=== PATIENT | male | born 1970 | race Caucasian/White ===

== ENCOUNTER 2016-11-24 22:17 | Observation (INO) | payer OTHER ==
[2016-11-24] MEDS ORDERED: ENALAPRILAT 1.25 MG/ML 1 ML VIAL IVP STA (23:05)
[2016-11-24 23:28] LABS: Basophils # (A) 0.1 k/uL (0-0.2); Basophils % (A) 1 %; CH 32.2; CHCM 33.6; Eosinophils # (A) 0.1 k/uL (0-0.7); Eosinophils % (A) 2 %; HCT 54.9 % (39.0-53.0); HDW 2.54; HGB 17.8 gm/dL (13.0-17.5); Luc # (Auto) 0.15; Luc % (Auto) 2; Lymphocytes # (A) 1.7 k/uL (1.0-4.8); Lymphocytes % (A) 27 %; MCH 31.1 pg (25.0-35.0); MCHC 32.4 g/dL (31.0-37.0); MCV 96.2 fL (80.0-100.0); Mean Platelet Volume 7.2; Monocytes # (A) 0.4 k/uL (0-1.0); Monocytes % (A) 7 %; Neutrophils # (A) 3.8 k/uL (1.3-7.7); Neutrophils % (A) 60 %; RBC 5.71 m/uL (4.30-5.90); RDW 15.9 % (11.5-15.5); WBC 6.3 k/uL (3.8-10.6); WBC (Perox) 6.02
--- NOTE | 2016-11-24 23:33 | ED ---
General Adult HPI - General Chief complaint: Extremity Problem,Nontraumatic Stated complaint: left arm numbness/swollen ankles Time Seen by Provider: 11/24/16 22:31 Source: patient Mode of arrival: ambulatory Limitations: no limitations - History of Present Illness Initial comments: 46-year-old male patient presents to emergency department today for complaints of left arm numbness and bilateral lower leg swelling. Patient states that for the last couple weeks he has been having intermittent left arm numbness and tingling. Patient states that it has occurred every day however comes and goes throughout the day. Patient states he feels no difference in strength. Denies any numbness, tingling, or weakness to the lower extremities. Patient states that he has not been taking his blood pressure medication for the last 2 weeks because [place] Patient also reports he has been having intermittent left-sided chest pain, states it is happened a couple times throughout the last 2 weeks. States it is dull and achy and lasts only for a few minutes. Patient denies any fever, chills, headache, dizziness, weakness, blurred vision, double vision, current chest pain, shortness of breath , nausea, vomiting, abdominal pain, difficulty with urination or bowel movements. Patient states he does have a chronic cough related to smoking at least one pack per day. - Related Data Home Medications Medication Instructions Recorded Confirmed Ibuprofen [Motrin] 800 mg PO BID PRN 11/24/16 11/24/16 Lisinopril-Hctz 20-12.5 mg 1 tab PO DAILY 11/24/16 11/24/16 [Zestoretic 20-12.5] Allergies Allergy/AdvReac Type Severity Reaction Status Date / Time No Known Allergies Allergy Verified 11/24/16 22:25 Review of Systems ROS Statement: Those systems with pertinent positive or pertinent negative responses have been documented in the HPI. ROS Other: All systems not noted in ROS Statement are negative. Past Medical History Past Medical History: Hypertension History of Any Multi-Drug Resistant Organisms: None Reported Past Surgical History: No Surgical Hx Reported Past Psychological History: No Psychological Hx Reported Smoking Status: Current every day smoker Past Alcohol Use History: Occasional Past Drug Use History: Marijuana General Exam Limitations: no limitations General appearance: alert, in no apparent distress Head exam: Present: atraumatic, normocephalic, normal inspection Eye exam: Present: normal appearance, PERRL, EOMI. Absent: scleral icterus, conjunctival injection, periorbital swelling ENT exam: Present: normal exam, normal oropharynx, mucous membranes moist Neck exam: Present: normal inspection, full ROM. Absent: tenderness, meningismus, lymphadenopathy Respiratory exam: Present: normal lung sounds bilaterally. Absent: respiratory distress, wheezes, rales, rhonchi, stridor Cardiovascular Exam: Present: regular rate, normal rhythm, normal heart sounds. Absent: systolic murmur, diastolic murmur, rubs, gallop, clicks GI/Abdominal exam: Present: soft, normal bowel sounds. Absent: distended, tenderness, guarding, rebound, rigid Extremities exam: Present: normal inspection, full ROM, normal capillary refill. Absent: tenderness, pedal edema, joint swelling, calf tenderness Back exam: Present: normal inspection Neurological exam: Present: alert, oriented X3, CN II-XII intact Expanded Patient oriented to: Present: person, place, time Speech: Present: fluid speech Cranial nerves: EOM's Intact: Normal, Tongue Deviation: Normal, Nystagmus: Normal, Facial Sensation: Normal Cerebellar function: Finger to Nose: Normal, Heel to Adams: Normal Motor strength exam: RUE: 5, LUE: 5, RLE: 5, LLE: 5 Eye Response: (4) open spontaneously Motor Response: (6) obeys commands Verbal Response: (5) oriented Psychiatric exam: Present: normal affect, normal mood Skin exam: Present: warm, dry, intact, normal color. Absent: rash Course Vital Signs 11/24/16 11/24/16 11/25/16 22:20 23:48 00:54 Temperature 97.9 F Pulse Rate 77 59 L Respiratory 18 17 Rate Blood Pressure 189/109 144/82 130/74 O2 Sat by Pulse 99 98 Oximetry EKG Findings - EKG Comments: EKG Findings:: EKG obtained at 2320 shows normal sinus rhythm with a right superior axis deviation. Ventricular rate 69, PA interval 156, Q zoroastrianism 96 , QT 394, QTC 422. No evidence of ST elevation or depression. Medical Decision Making - Medical Decision Making 46-year-old male patient presented to emergency department today with complaints of left arm numbness and tingling, lower extremity edema, and did report intermittent left-sided chest pain over the last couple of weeks. Lab work was performed and did show an elevated troponin and at 0.039. CT of the brain was done and showed no acute intracranial abnormalities. Patient will be admitted with acute coronary syndrome, cardiology consult placed. Patient given aspirin here and emergency department. Patient started on heparin protocol. Did not start beta jessica at this time because patient was found to be bradycardic in the emergency department. Patient initially did have elevated blood pressure however pressure improved throughout stay. My attending Dr. Frost will speak to Dr. Spangler. - Lab Data Result diagrams: 11/24/16 23:15 11/24/16 23:15 Lab Results 11/24/16 11/24/16 11/24/16 Range/Units 23:15 23:15 23:15 WBC 6.3 (3.8-10.6) k/uL RBC 5.71 (4.30-5.90) m/uL Hgb 17.8 H (13.0-17.5) gm/dL Hct 54.9 H (39.0-53.0) % MCV 96.2 (80.0-100.0) fL MCH 31.1 (25.0-35.0) pg MCHC 32.4 (31.0-37.0) g/dL RDW 15.9 H (11.5-15.5) % Plt Count 307 (150-450) k/uL Neutrophils % 60 % Lymphocytes % 27 % Monocytes % 7 % Eosinophils % 2 % Basophils % 1 % Neutrophils # 3.8 (1.3-7.7) k/uL Lymphocytes # 1.7 (1.0-4.8) k/uL Monocytes # 0.4 (0-1.0) k/uL Eosinophils # 0.1 (0-0.7) k/uL Basophils # 0.1 (0-0.2) k/uL Sodium 135 L (137-145) mmol/L Potassium 4.4 (3.5-5.1) mmol/L Chloride 102 (98-107) mmol/L Carbon Dioxide 26 (22-30) mmol/L Anion Gap 7 mmol/L BUN 12 (9-20) mg/dL Creatinine 1.00 (0.66-1.25) mg/dL Est GFR (MDRD) Af Amer >60 (>60 ml/min/1.73 sqM) Est GFR (MDRD) Non-Af >60 (>60 ml/min/1.73 sqM) Glucose 86 (74-99) mg/dL Calcium 9.6 (8.4-10.2) mg/dL Magnesium 2.0 (1.6-2.3) mg/dL Total Bilirubin 0.6 (0.2-1.3) mg/dL AST 21 (17-59) U/L ALT 34 (21-72) U/L Alkaline Phosphatase 100 (38-126) U/L Total Creatine Kinase 93 (55-170) U/L CK-MB (CK-2) 1.5 (0.0-2.4) ng/mL CK-MB (CK-2) Rel Index 1.6 Troponin I 0.039 H* (0.000-0.034) ng/mL NT-Pro-B Natriuret Pep pg/mL Total Protein 6.7 (6.3-8.2) g/dL Albumin 3.9 (3.5-5.0) g/dL TSH 2.670 (0.465-4.680) mIU/L 11/24/16 Range/Units 23:15 WBC (3.8-10.6) k/uL RBC (4.30-5.90) m/uL Hgb (13.0-17.5) gm/dL Hct (39.0-53.0) % MCV (80.0-100.0) fL MCH (25.0-35.0) pg MCHC (31.0-37.0) g/dL RDW (11.5-15.5) % Plt Count (150-450) k/uL Neutrophils % % Lymphocytes % % Monocytes % % Eosinophils % % Basophils % % Neutrophils # (1.3-7.7) k/uL Lymphocytes # (1.0-4.8) k/uL Monocytes # (0-1.0) k/uL Eosinophils # (0-0.7) k/uL Basophils # (0-0.2) k/uL Sodium (137-145) mmol/L Potassium (3.5-5.1) mmol/L Chloride (98-107) mmol/L Carbon Dioxide (22-30) mmol/L Anion Gap mmol/L BUN (9-20) mg/dL Creatinine (0.66-1.25) mg/dL Est GFR (MDRD) Af Amer (>60 ml/min/1.73 sqM) Est GFR (MDRD) Non-Af (>60 ml/min/1.73 sqM) Glucose (74-99) mg/dL Calcium (8.4-10.2) mg/dL Magnesium (1.6-2.3) mg/dL Total Bilirubin (0.2-1.3) mg/dL AST (17-59) U/L ALT (21-72) U/L Alkaline Phosphatase (38-126) U/L Total Creatine Kinase (55-170) U/L CK-MB (CK-2) (0.0-2.4) ng/mL CK-MB (CK-2) Rel Index Troponin I (0.000-0.034) ng/mL NT-Pro-B Natriuret Pep 89 pg/mL Total Protein (6.3-8.2) g/dL Albumin (3.5-5.0) g/dL TSH (0.465-4.680) mIU/L - Radiology Data Radiology results: report reviewed, image reviewed CT of the brain without contrast shows no acute intracranial hemorrhage, mass effect, midline shift or herniation. Ventricle show no evidence of hydrocephalus. Bones and joints show no acute fracture. There is mild thickening of the left parietal bone outer table, suggesting a small exostosis. Soft tissue show is 2.5 cm rounded subcutaneous fat density at the mid frontal scalp, most likely a lipoma. Sinuses show trace paranasal sinus mucosal thickening. No air-fluid levels. Mastoid air cells are unremarkable is visualized. No mastoid effusion. Impression by Dr. Tabares shows no acute intracranial abnormality detected. Chronic and incidental findings as above. Two-view x-ray of the chest shows no airspace consolidation. No significant pleural effusion. No pneumothorax. Normal cardiac silhouette. Mediastinum is unremarkable. Bones and joints show age indeterminate compression fracture of a lower thoracic vertebra, possibly T12 with approximately 15% height loss. Impression by Dr. Tabares shows age indeterminate compression fracture of a lower thoracic vertebra, possibly T12, with approximately 50% height loss. Otherwise no acute findings. Disposition Clinical Impression: Acute coronary syndrome, Lower leg edema, Left arm numbness Disposition: ADMITTED IP TO THIS HOSP Condition: Fair Referrals: Sukumar Cox MD [Primary Care Provider] - 1-2 days Decision to Admit Reason: Admit from [facility] Decision Date: 11/25/16 Decision Time: 01:06
--- NOTE | 2016-11-24 23:36 | XR ---
EXAM: XR Chest, 2 Views CLINICAL HISTORY: Pain. Hypertension. Left arm numbness. TECHNIQUE: Frontal and lateral views of the chest. Total images: 3. COMPARISON: No relevant prior studies available. FINDINGS: Lungs: No airspace consolidation. Pleural space: No significant pleural effusion. No pneumothorax. Heart: Normal cardiac silhouette. Mediastinum: Unremarkable. Bones/joints: Age-indeterminate compression fracture of a lower thoracic vertebra, possibly T12, with approximately 15% height loss. IMPRESSION: 1. Age-indeterminate compression fracture of a lower thoracic vertebra, possibly T12, with approximately 15% height loss. 2. Otherwise, no acute findings.
[2016-11-24 23:39] LABS: ALT 34 U/L (21-72); AST 21 U/L (17-59); Alkaline Phosphatase 100 U/L (38-126); Anion Gap 7 mmol/L; Blood Urea Nitrogen 12 mg/dL (9-20); Calcium 9.6 mg/dL (8.4-10.2); Carbon Dioxide 26 mmol/L (22-30); Chloride 102 mmol/L (98-107); Glucose 86 mg/dL (74-99); Non-African American GFR(MDRD) >60 (>60 ml/min/1.73 sqM); Potassium 4.4 mmol/L (3.5-5.1); Sodium 135 mmol/L (137-145); Total Bilirubin 0.6 mg/dL (0.2-1.3); Total Protein 6.7 g/dL (6.3-8.2)
--- NOTE | 2016-11-24 23:41 | CT ---
EXAM: CT Head Without Intravenous Contrast CLINICAL HISTORY: Left arm numbness. Ankle swelling. TECHNIQUE: Axial computed tomography images of the head/brain without intravenous contrast. CTDI is 57.40 mGy and DLP is 1150.50 mGy-cm. This CT exam was performed using one or more of the following dose reduction techniques: automated exposure control, adjustment of the mA and/or kV according to patient size, and/or use of iterative reconstruction technique. Coronal and sagittal reformatted images were created and reviewed. COMPARISON: No relevant prior studies available. FINDINGS: Brain: No acute intracranial hemorrhage, mass effect, midline shift or herniation. Ventricles: No evidence of hydrocephalus. Bones/joints: No acute fracture. There is mild thickening of the left parietal bone outer table, suggesting a small exostosis. Soft tissues: There is a 2.5 cm rounded subcutaneous fat density at the mid frontal scalp, most likely a lipoma. Sinuses: Trace paranasal sinus mucosal thickening. No air-fluid levels. Mastoid air cells: Unremarkable as visualized. No mastoid effusion. IMPRESSION: 1. No acute intracranial abnormality detected. 2. Chronic and incidental findings as above.
[2016-11-25 00:17] LABS: Creatine Kinase MB 1.5 ng/mL (0.0-2.4)
[2016-11-25 00:20] LABS: Troponin I 0.039 ng/mL (0.000-0.034)
[2016-11-25] MEDS ORDERED: HEPARIN SODIUM,PORCINE 5,000 UNIT/ML 1 ML VIAL IV PRN (01:00)
[2016-11-25] MEDS ORDERED: NITROGLYCERIN SL TABS 0.4 MG TAB SUBLINGUAL PRN (01:00)
[2016-11-25] MEDS ORDERED: ASPIRIN 81 MG PO STA (01:00)
[2016-11-25] MEDS ORDERED: MORPHINE SULFATE 2 MG/ML SYRINGE IVP PRN (01:00)
[2016-11-25] MEDS ORDERED: HEPARIN SODIUM,PORCINE 5,000 UNIT/ML 1 ML VIAL IV ONE (01:00)
[2016-11-25] MEDS: SODIUM CHLORIDE 0.9% 1,000 ML IV SCH (01:52)
[2016-11-25] MEDS: HEPARIN SODIUM,PORCINE/D5W PMX 25,000 UNIT in DEXTROSE/WATER 1 500ML.BAG IV SCH (01:53)
[2016-11-25 02:04] LABS: Partial Thromboplastin Time 26.7 sec (22.0-30.0); Prothrombin Time 10.2 sec (9.0-12.0)
[2016-11-25 02:31] VITALS: BMI 29.7
[2016-11-25 05:38] LABS: Mean Platelet Volume 7.6
[2016-11-25 06:11] LABS: Creatine Kinase MB 1.3 ng/mL (0.0-2.4)
[2016-11-25 06:33] LABS: Troponin I 0.036 ng/mL (0.000-0.034)
--- NOTE | 2016-11-25 08:02 | P.CRDCN ---
History of Present Illness Consult date: 11/25/16 Requesting physician: Galileo Spangler Consult reason: chest pain Chief complaint: Left arm numbness History of present illness: This is a 46-year-old gentleman with history of hypertension, nicotine dependence, he states he drinks 3 or 4 times a week and at that time drinks approximately 7 alcoholic beverages. He denies any family history of premature coronary artery disease. Patient presents to the hospital with symptoms of left arm numbness which she states that he's been experiencing for the past 3 weeks or so off and on. He did go to see his primary care physician a couple of weeks ago and was told that he may have a pinched nerve. He states that the symptoms somewhat subsided and then again returned. Yesterday he also noticed some swelling in his bilateral ankles. Patient does state that approximately 2 weeks ago he did have an episode of aching in his chest, according to him he only had 1 episode of this. He does have known hypertension , has not taken his blood pressure medications for the past 2 weeks. He denies any dizziness or lightheadedness, no difficulty speaking, no blurred vision. He denies any overt shortness of breath. CAT scan of the brain was performed which did not reveal any acute abnormality. Chest x-ray revealed age indeterminate compression fracture of the lower thoracic vertebrae otherwise no acute findings. EKG on arrival here showed a normal sinus rhythm with nonspecific ST-T wave changes. Blood pressure on arrival here 189/109, heart rate in the 70s, 99% on room air. White blood cell count normal, hemoglobin 17.8, platelet count 278. Sodium 135, potassium 4.4, BUN 12, creatinine 1.0. TSH normal. BNP 89, troponin 0.039, 0.036. Time of my examination this morning , patient denies any left arm numbness, denies chest pain. Past Medical History Past Medical History: Hypertension History of Any Multi-Drug Resistant Organisms: None Reported Past Surgical History: No Surgical Hx Reported Past Anesthesia/Blood Transfusion Reactions: No Reported Reaction Past Psychological History: No Psychological Hx Reported Smoking Status: Former smoker Past Alcohol Use History: Occasional Past Drug Use History: Marijuana - Past Family History Father Family Medical History: No Reported History Mother Family Medical History: No Reported History Medications and Allergies Home Medications Medication Instructions Recorded Confirmed Type Ibuprofen [Motrin] 800 mg PO BID PRN 11/24/16 11/24/16 History Lisinopril-Hctz 20-12.5 mg 1 tab PO DAILY 11/24/16 11/24/16 History [Zestoretic 20-12.5] Allergies Allergy/AdvReac Type Severity Reaction Status Date / Time No Known Allergies Allergy Verified 11/24/16 22:25 Physical Exam Vitals: Vital Signs Temp Pulse Pulse Resp BP BP Pulse Ox 11/25/16 04:00 97.5 F L 67 17 155/90 96 11/25/16 02:02 97.9 F 62 16 140/75 98 11/25/16 00:54 59 L 17 130/74 98 11/24/16 23:48 144/82 11/24/16 22:20 97.9 F 77 18 189/109 99 Intake and Output 11/24/16 11/25/16 11/25/16 22:59 06:59 14:59 Intake Total 160.333 Output Total 500 Balance -339.667 Intake: Intake, IV Titration 160.333 Amount Heparin Sodium,Porcine/ 80.333 D5w Pmx 25,000 unit In Dextrose/Water 1 500ml. bag @ 9.8 UNITS/KG/HR 20 mls/hr IV .Q24H HUEY Rx#: [id number] Sodium Chloride 0.9% 1, 80 000 ml @ 20 mls/hr IV . Q24H [facility]UEY Rx#:[id number] Output: Urine 500 Other: Voiding Method Toilet # Voids 2 Weight 102.058 kg 102.6 kg PHYSICAL EXAMINATION: HEENT: Head is atraumatic, normocephalic. Pupils equal, round. Neck is supple. There is no elevated jugular venous pressure. HEART EXAMINATION: Heart S1, S2 normal. No murmur or gallop heard. CHEST EXAMINATION: Lungs are clear to auscultation and precussion. No chest wall tenderness is noted on palpation or with deep breathing. ABDOMEN: Soft, nontender. Bowel sounds are heard. No organomegaly noted. EXTREMITIES: 2+ peripheral pulses with trace evidence of peripheral edema and no calf tenderness noted. NEUROLOGIC patient is awake, alert and oriented -3. . Results 11/25/16 05:16 11/24/16 23:15 Cardiac Enzymes 11/24/16 11/24/16 11/25/16 Range/Units 23:15 23:15 05:16 AST 21 (17-59) U/L CK-MB (CK-2) 1.5 1.3 (0.0-2.4) ng/mL Troponin I 0.039 H* 0.036 H* (0.000-0.034) ng/mL Coagulation 11/24/16 11/25/16 Range/Units 23:15 05:16 PT 10.2 (9.0-12.0) sec APTT 26.7 28.5 (22.0-30.0) sec CBC 11/24/16 11/25/16 Range/Units 23:15 05:16 WBC 6.3 (3.8-10.6) k/uL RBC 5.71 (4.30-5.90) m/uL Hgb 17.8 H (13.0-17.5) gm/dL Hct 54.9 H (39.0-53.0) % Plt Count 307 278 (150-450) k/uL Comprehensive Metabolic Panel 11/24/16 Range/Units 23:15 Sodium 135 L (137-145) mmol/L Potassium 4.4 (3.5-5.1) mmol/L Chloride 102 (98-107) mmol/L Carbon Dioxide 26 (22-30) mmol/L BUN 12 (9-20) mg/dL Creatinine 1.00 (0.66-1.25) mg/dL Glucose 86 (74-99) mg/dL Calcium 9.6 (8.4-10.2) mg/dL AST 21 (17-59) U/L ALT 34 (21-72) U/L Alkaline Phosphatase 100 (38-126) U/L Total Protein 6.7 (6.3-8.2) g/dL Albumin 3.9 (3.5-5.0) g/dL Current Medications Generic Name Dose Route Start Last Admin Trade Name Freq PRN Reason Stop Dose Admin Aspirin 325 mg 11/26/16 09:00 Aspirin PO DAILY [facility] Atorvastatin Calcium 20 mg 11/25/16 09:00 Lipitor PO DAILY [facility] Heparin Sodium (Porcine) 0 unit 11/25/16 01:00 Heparin IV Q6HR PRN Low PTT Protocol Heparin Sodium/Dextrose 25,000 500 mls @ 20 mls/hr 11/25/16 01:00 11/25/16 05 :54 unit/ IV Solution IV 12.8 units/kg/hr .Q24H [facility]UEY 26.12 mls/hr Protocol Titration 9.8 UNITS/KG/HR Sodium Chloride 1,000 mls @ 20 mls/hr 11/25/16 01:00 11/25/16 01:52 Saline 0.9% IV 20 mls/hr .Q24H [facility]UE[facility] Administration Morphine Sulfate 2 mg 11/25/16 01:00 Morphine Sulfate (Inj) IVP Q5M PRN Chest Pain Nitroglycerin 0.4 mg 11/25/16 01:00 Nitrostat SUBLINGUAL Q5M PRN Chest Pain Intake and Output 11/24/16 11/25/16 11/25/16 22:59 06:59 14:59 Intake Total 160.333 Output Total 500 Balance -339.667 Intake: Intake, IV Titration 160.333 Amount Heparin Sodium,Porcine/ 80.333 D5w Pmx 25,000 unit In Dextrose/Water 1 500ml. bag @ 9.8 UNITS/KG/HR 20 mls/hr IV .Q24H [facility] Rx#: [id number] Sodium Chloride 0.9% 1, 80 000 ml @ 20 mls/hr IV . Q24H [facility] Rx#:[id number] Output: Urine 500 Other: Voiding Method Toilet # Voids 2 Weight 102.058 kg 102.6 kg 11/25/16 05:16 11/24/16 23:15 EKG Interpretations (text) EKG shows normal sinus rhythm with nonspecific ST-T wave changes Assessment and Plan Plan: Assessment and plan #1 symptoms of left arm numbness, intermittent for approximately a three-week duration, one episode of chest discomfort. Troponins 0.039, 0.036. EKG shows normal sinus rhythm with nonspecific ST-T wave changes. CAT scan of the brain does not reveal any acute findings. #2 accelerated hypertension, patient has history of hypertension, has not taken his blood pressure medication for approximately 2 weeks. #3 nicotine dependence, patient's smokes at least one pack of cigarettes per day. #4 EtOH use Plan We will request an echocardiogram with Doppler study be performed. We will also resume the patient's home pressure medications. Discontinue the when necessary antihypertensives. Obtain fasting lipid profile. Obtain d-dimer. Further recommendations will be based on these findings and patient's clinical course. DNP note has been reviewed, I agree with a documented findings and plan of care. Patient was seen and examined.
[2016-11-25] MEDS ORDERED: METOPROLOL TARTRATE 25 MG TAB PO SCH (09:00)
[2016-11-25] MEDS ORDERED: LISINOPRIL-HCTZ 20-12.5 MG 1 EACH TAB PO SCH (09:00)
[2016-11-25] MEDS: ATORVASTATIN 20 MG TAB PO SCH (09:07)
[2016-11-25] MEDS ORDERED: DOBUTamine DRIP for NUC MED 500 MG in DEXTROSE/WATER 1 250ML.BAG IV ONE (10:53)
--- NOTE | 2016-11-25 12:23 | P.STRESS ---
- Stress Test Note Stress Test Results/Findings: Exam Performed: dobutamine stress echo Exam Date: 11/25/16 Reason for Exam: CP Height: 6 ft 1 in Weight: 102.6 kg Protocol: DSE Stage: 40MCG Duration of Exercise: 13 MIN Resting Heart Rate: 54 Resting Blood Pressure: 142/99 Maximum Achieved Heart Rate: 149 Maximum Achieved Blood Pressure: 206/110 85% PMHR: 149 100% PMHR: 175 METS: Technologist Comment: Stress Test Results/Findings: This is a 46-year-old gentleman who is being evaluated for symptoms of chest pain. Patient has history of hypertension and also smoking history. An EKG showed sinus rhythm with normal [place] interval, QRS duration. A standard dose of dobutamine was was initiated at 10 mics and was titrated to maximum of 40 mics. Patient is HIV maximum rate of 149 with blood pressure 200/74. EKGs taken during or after the dobutamine infusion did not reveal any changes to sized ischemia. Patient did not explains any chest pain. Echo data: Baseline echo images showed normal wall motion and thickening. Exercise echo images with the dobutamine showed augmentation of wall motion and thickening in all segments. Patient did not sense any chest pain. Final impression: #1. Negative dobutamine stress test. #2. Negative Debridement stress echo
[2016-11-25 13:10] LABS: Creatine Kinase MB 1.1 ng/mL (0.0-2.4)
[2016-11-25 13:17] LABS: Troponin I 0.041 ng/mL (0.000-0.034)
[2016-11-25] MEDS: LISINOPRIL-HCTZ 20-12.5 MG 1 EACH TAB PO SCH (15:17)
[2016-11-25] MEDS ORDERED: RX INFO: IV CONTRAST WAS GIVEN 1 EACH MISC MISCELLANE PRN (17:48)
--- NOTE | 2016-11-25 18:39 | XR ---
EXAMINATION TYPE: XR cervical spine comp DATE OF EXAM: 11/25/2016 CLINICAL HISTORY: pain COMPARISON: NONE TECHNIQUE: Frontal, lateral, oblique, swimmers, and open mouth view of the cervical spine are obtaine d. FINDINGS: There is reversal of the normal cervical lordosis which can be seen in patients with muscle spasticity. There is no evidence of fracture or subluxation. Moderate degenerative narrowing and spo ndylosis identified at C5-6 and C6-7. Mild bilateral foraminal encroachment at C6-7 left greater than right. IMPRESSION: Degenerative changes as discussed. Reversal of the normal cervical lordosis.
--- NOTE | 2016-11-25 19:34 | CT ---
EXAMINATION TYPE: CT cervical spine wo/w con DATE OF EXAM: 11/25/2016 COMPARISON: NONE HISTORY: Patient fell off roof couple years ago, left arm numbness and left neck and shoulder pain. CT DLP: 1246.[address] of the cervical spine was performed with bone and soft tissue window settings submitted . Coronal and sagittal reconstruction is obtained. There is reversal of the normal cervical lordosis which can be seen in patients with muscle spasticit y. C2-3, C3-4 and C4-5: Within normal limits C5-6: Moderate degenerative disc space narrowing. Moderate size ventral and dorsal spondylosis. Effac ement of the ventral thecal sac with mild central stenosis identified. Bilateral foraminal encroachme nt is seen. C6-7: Mild degenerative disc space narrowing. Posterior disc bulge identified. No evidence for kimberly herniation or central stenosis. C7-T1: Within normal limits. No evidence for fracture or subluxation. IMPRESSION: 1. Degenerative disc disease greatest at C5-6 with associated spondylosis and mild central stenosis. Bilateral foraminal encroachment at this level.
[2016-11-25 20:54] VITALS: TEMP 98.4
--- NOTE | 2016-11-25 21:09 | P.HPIM ---
History of Present Illness H&P Date: 11/25/16 Chief Complaint: Left arm numbness History of presenting complaint This is a 46-year-old patient of Dr. Cox. Patient for 8 weeks has been having some numbness and tingling in the left arm. He went to see Dr. Cox few weeks ago and then got better. It did come back again for about 7-10 days. Patient previously had a fall with injury to his neck about 6 years ago and had some probably injury to his vertebra. Because of his presentation is concerned about cardiac events he was admitted. Patient denies any dizziness no headaches no precordial pain. The patient does have chronic intermittent neck pain. GEN.: None EYES: None HEENT: None NECK: As above RESPIRATORY: None CARDIOVASCULAR: None GASTROINTESTINAL: None GENITOURINARY: None MUSCULOSKELETAL: As above] LYMPHATICS: None HEMATOLOGICAL: None PSYCHIATRY: None NEUROLOGICAL: Left arm numbness Past medical history: Hypertension, hyperlipidemia, injury to the neck secondary to fall Past surgical history None Social history: Smokes a pack a day for last 30 years. . 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 EYES: Pupils equal. Conjunctiva normal. HEENT: External appearance of nose and ears normal, oral cavity grossly normal. NECK: JVD not raised; masses not palpable. HEART: First and second heart sounds are normal; no edema. LUNGS: Respiratory rate normal; clear to auscultation. ABDOMEN: Soft, nontender, liver spleen not palpable, no masses palpable. LYMPHATICS: No lymph nodes palpable in the axilla and neck. PSYCH: Alert and oriented x3; mood and affect normal. NEUROLOGICAL: Cranial nerves grossly intact; no facial asymmetry, power and sensation grossly intact. Investigations: White count 6.3 hemoglobin 17.8 potassium 4.4 Troponin 0.039, 0.036, 0.041, TSH 2.6 Chest x-ray T12 compression fracture appears chronic Assessment: -This is a patient presents with left arm numbness with a prior history of cervical spine injury second to follow injury many years ago. This could be related to/radicular manifestation. -Essential hypertension -Hyperlipidemia -Chronic nicotine Dependence patient is smoker Plan: Cardiology was consulted. They ordered a stress test. Cervical spine x-ray and computed tomography scan of the cervical spine was ordered. Care was discussed with the patient and . Patient needed outpatient orthopedic follow-up. Patient advised against smoking and begin a nicotine patch. Past Medical History Past Medical History: Hypertension History of Any Multi-Drug Resistant Organisms: None Reported Past Surgical History: No Surgical Hx Reported Past Anesthesia/Blood Transfusion Reactions: No Reported Reaction Past Psychological History: No Psychological Hx Reported Smoking Status: Former smoker Past Alcohol Use History: Occasional Past Drug Use History: Marijuana - Past Family History Father Family Medical History: No Reported History Mother Family Medical History: No Reported History Medications and Allergies Allergies Allergy/AdvReac Type Severity Reaction Status Date / Time No Known Allergies Allergy Verified 11/24/16 22:25 Results CBC & Chem 7: 11/25/16 05:16 11/24/16 23:15 Thrombosis Risk Factor Assmnt - Choose All That Apply Other Risk Factors: No
[2016-11-26 00:45] VITALS: RESP 18
[2016-11-26] MEDS: HEPARIN SODIUM,PORCINE/D5W PMX 25,000 UNIT in DEXTROSE/WATER 1 500ML.BAG IV SCH (01:44)
[2016-11-26] MEDS: SODIUM CHLORIDE 0.9% 1,000 ML IV SCH (01:46)
[2016-11-26 07:06] LABS: Mean Platelet Volume 7.5
[2016-11-26 07:24] LABS: Cholesterol 180 mg/dL (<200); HDL Cholesterol 43 mg/dL (40-60)
[2016-11-26] MEDS: LISINOPRIL-HCTZ 20-12.5 MG 1 EACH TAB PO SCH (07:55)
[2016-11-26] MEDS: ATORVASTATIN 20 MG TAB PO SCH (07:55)
[2016-11-26 08:01] VITALS: BP 148/91; PULSE 60
[2016-11-26] MEDS ORDERED: ASPIRIN 325 MG TAB PO SCH (09:00)
--- NOTE | 2016-11-26 20:35 | P.DS ---
Providers Date of admission: 11/25/16 01:08 Expected date of discharge: 11/26/16 Attending physician: Galileo Spangler Consults: 11/25/16 01:00 Consult Physician Urgent Consulting Provider: [facility] Consult Reason/Comments: Chest Pain, Elevated Trop, Lower extremity edema Do you want consulting provider notified?: Yes Primary care physician: Sukumar Kenny [facility] Course: FINAL DIAGNOSES: -Left arm numbness with history of cervical spine injury likely related to radicular manifestation -Essential hypertension. -Hyperlipidemia. -Chronic nicotine dependence patient is a smoker HOSPTIAL COURSE: This a 46-year-old male who presented with left arm numbness with concerns for cardiac etiology. Patient admitted, cardiology consulted stress test ordered. EKG stress test and cardiac enzymes all negative. Cervical spine x-ray and CT of the cervical spine revealed degenerative disc disease with associated spondylosis and central stenosis. Left arm is not paining the patient nor is the cervical spinal area. Patient can follow-up with Dr. Iglesias of ortho/spine on an outpatient basis for further treatment. No further chest pain episodes, patient tolerating his diet, ambulatory in the room and queen ways, has moved his bowels. Overall condition is stable patient would like to go home. Patient is ready for discharge. 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 Spangler DISPOSITION: Home to the care of his family Patient Condition at Discharge: Stable Plan - Discharge Summary New Discharge Prescriptions: New Atorvastatin [Lipitor] 20 mg PO DAILY #30 tab Lisinopril-Hctz 20-12.5 mg [Zestoretic 20-12.5] 2 each PO DAILY #30 tab Naproxen [Naprosyn] 500 mg PO Q12HR #20 tab predniSONE 10 mg PO DAILY #30 tab Discontinued Lisinopril-Hctz 20-12.5 mg [Zestoretic 20-12.5] 1 tab PO DAILY Ibuprofen [Motrin] 800 mg PO BID PRN PRN Reason: Pain Discharge Medication List Atorvastatin [Lipitor] 20 mg PO DAILY #30 tab 11/25/16 [Rx] Lisinopril-Hctz 20-12.5 mg [Zestoretic 20-12.5] 2 each PO DAILY #30 tab [Rx] Naproxen [Naprosyn] 500 mg PO Q12HR #20 tab 11/26/16 [Rx] predniSONE 10 mg PO DAILY #30 tab 11/26/16 [Rx] Follow up Appointment(s)/Referral(s): Parmjit Orantes MD [STAFF PHYSICIAN] - 1 Week (message left. office will call with appointment time) Barbara Hauser NPC [Nurse Practitioner] - 1 Week (office will call with appointment time) Jayla Iglesias DO [Doctor of Osteopathic Medicine] - 1 Week (please call to make appointment) Sukumar Cox MD [Primary Care Provider] - 3 Days (Office is closed. Please call to make appointment) Patient Instructions/Handouts: Acute Coronary Syndrome (DC) Discharge Disposition: HOME SELF-CARE
--- NOTE | 2016-11-29 10:12 | ECHOS ---
Stress Test Results/Findings: Exam Performed: dobutamine stress echo Exam Date: 11/25/16 Reason for Exam: CP Height: 6 ft 1 in Weight: 102.6 kg Protocol: DSE Stage: 40MCG Duration of Exercise: 13 MIN Resting Heart Rate: 54 Resting Blood Pressure: 142/99 Maximum Achieved Heart Rate: 149 Maximum Achieved Blood Pressure: 206/110 85% PMHR: 149 100% PMHR: 175 METS: Technologist Comment: Stress Test Results/Findings: This is a 46-year-old gentleman who is being evaluated for symptoms of chest pain. Patient has history of hypertension and also smoking history. An EKG showed sinus rhythm with normal WI interval, QRS duration. A standard dose of dobutamine was was initiated at 10 mics and was titrated to maximum of 40 mics. Patient is HIV maximum rate of 149 with blood pressure 200/74. EKGs taken during or after the dobutamine infusion did not reveal any changes to sized ischemia. Patient did not explains any chest pain. Echo data: Baseline echo images showed normal wall motion and thickening. Exercise echo images with the dobutamine showed augmentation of wall motion and thickening in all segments. Patient did not sense any chest pain. Final impression: #1. Negative dobutamine stress test. #2. Negative Debridement stress echo MTDD
--- NOTE | 2016-11-29 15:49 | ECHOF ---
Referral Reason:chest pain MEASUREMENTS -------- HEIGHT: 182.9 cm WEIGHT: 102.5 kg BP: 130/60 RVIDd: 3.2 cm (< 3.3) IVSd: 1.0 cm (0.6 - 1.1) LVIDd: 4.5 cm (3.9 - 5.3) LVPWd: 1.3 cm (0.6 - 1.1) EDV(Teich): 94 ml IVSs: 1.5 cm LVIDs: 3.2 cm LVPWs: 1.7 cm %IVS Thck: 45 % ESV(Teich): 41 ml EF(Teich): 56 % %FS: 29 % SV(Teich): 53 ml LALs A4C: 5.2 cm LAAs A4C: 17.5 cm LAESV A-L A4C: 50 ml LAESV MOD A4C: 47 ml LALs A2C: 5.1 cm LAAs A2C: 18.7 cm LAESV A-L A2C: 59 ml LAESV MOD A2C: 55 ml LAESV(A-L): 55 ml LAESV Index (A-L): 24.43 ml/m Ao Diam: 3.3 cm (2.0 - 3.7) AV Cusp: 2.2 cm (1.5 - 2.6) LA Diam: 3.6 cm (2.7 - 3.8) MV EXCURSION: 20.477 mm (> 18.000) MV EF SLOPE: 94 mm/s (70 - 150) EPSS: 0.6 cm MV E Christiano: 0.74 m/s MV DecT: 174 ms MV Dec Clinton: 4.3 m/s MV A Christiano: 0.66 m/s MV E/A Ratio: 1.12 MV PHT: 51 ms E/E': 12.15 E': 0.06 m/s AV Vmax: 1.03 m/s AV maxP.20 mmHg TR Vmax: 1.23 m/s TR maxP.07 mmHg RAP: 5.00 mmHg RVSP: 11.07 mmHg FINDINGS -------- Sinus rhythm. This was a technically adequate study. LV size, wall thickness and systolic function are normal, with an EF greater than 55%. The right ventricle is normal in size. Normal LA size by volume 22+/-6 ml/m2. The right atrial size is normal. There is mild aortic valve sclerosis. There is no evidence of aortic regurgitation. Mild mitral annular calcification present. Mild mitral regurgitation is present. Mild tricuspid regurgitation present. There is no evidence of pulmonary hypertension. The right ventricular systolic pressure, as measured by Doppler, is 11.07mmHg. Trace/mild (physiologic) pulmonic regurgitation. The aortic root size is normal. There is no pericardial effusion. CONCLUSIONS -------- 1. LV size, wall thickness and systolic function are normal, with an EF greater than 55%. 2. There is mild aortic valve sclerosis. 3. Mild mitral annular calcification present. 4. Mild mitral regurgitation is present. 5. Mild tricuspid regurgitation present. 6. There is no evidence of pulmonary hypertension. 7. The right ventricular systolic pressure, as measured by Doppler, is 11.07mmHg. 8. Trace/mild (physiologic) pulmonic regurgitation. FRENCH TEACHER: Jennifer Aguiar RDCS
== END 2016-11-26 11:45 | disposition home or self-care (01) ==
LOC: EC 22:17 → 6SEL 11-25 01:08 → INTOOBSV 11-25 01:08
PROVIDERS: ADMIT Hospitalist; ATTEND Hospitalist
DX: R20.0 Anesthesia of skin (principal); M50.122 Cervical disc disorder at C5-C6 level with radiculopathy; R07.89 Other chest pain; I10 Essential (primary) hypertension; M47.22 Other spondylosis with radiculopathy, cervical region; R00.1 Bradycardia, unspecified; T46.4X6A Underdosing of angiotensin-converting-enzyme inhibitors, initial encounter; Z91.128 Patient's intentional underdosing of medication regimen for other reason; M48.02 Spinal stenosis, cervical region; R60.0 Localized edema; E78.5 Hyperlipidemia, unspecified; F17.210 Nicotine dependence, cigarettes, uncomplicated; Z79.899 Other long term (current) drug therapy; Z87.828 Personal history of other (healed) physical injury and trauma; Z91.81 History of falling; Z72.89 Other problems related to lifestyle
CPT/HCPCS: 96376 ×2; 99285 ×2; 96365; 96366; 36415; 93005; 93017; 93306; 93350; 85379; 83880; 80061; 80053; 84443; 82550 ×2; 82553 ×2; 83735; 84484 ×2; 85025; 85049 ×2; 85610; 85730; 71020; 72050; 72127; 70450; G0378 ×2; J1250; J1644 ×2; Q9967; 96374

== ENCOUNTER → 2019-11-28 | Outpatient (CLI) | payer OTHER ==
--- NOTE | 2019-11-28 10:34 | CT ---
EXAMINATION TYPE: CT angio abdomen pelvis DATE OF EXAM: 11/28/2019 COMPARISON: None HISTORY: Aneurysm of iliac artery CT DLP: 1332.8 mGycm CONTRAST: CTA thoracic and abdominal aorta with 3-D reconstruction is performed without Oral Contrast and witho ut and with IV Contrast, patient injected with 100 mL of Isovue 370. Contrast CTA of the abdominal aorta was performed from the lung bases through the base of the pelvis. 3-D reconstruction imaging obtained at a separate workstation. CONTRAST CT ABDOMEN AND PELVIS ABDOMINAL AORTA: There is ectasia of the abdominal aorta without evidence for aneurysm. Mild mural th rombus seen. Branch vessels including the celiac, SMA, BLAYNE and renal vessels are patent. There is a r ight common iliac artery aneurysm measuring 2.5 cm in greatest transverse dimension. The left common iliac arteries of normal caliber. The internal and external/internal iliac arteries are patent and no naneurysmal. LIVER/GB- No significant abnormality is seen. PANCREAS- No significant abnormality is seen. SPLEEN- No significant abnormality is seen. ADRENALS- No significant abnormality is seen. KIDNEYS/BLADDER- No significant abnormality is seen. BOWEL- No Significant abnormality GENITAL ORGANS: No gross abnormality seen. LYMPH NODES- No greater than 1cm abdominal or pelvic lymph nodes areappreciated. OSSEOUS STRUCTURES- No significant abnormality is seen. OTHER- No significant abnormality is seen. IMPRESSION- 1. Right common iliac artery aneurysm as noted.
== END | disposition home or self-care (01) ==
LOC: RADCTMAIN 09:29
PROVIDERS: ATTEND Thoracic Surgery (Cardiothoracic Vascular Surgery)
DX: I72.3 Aneurysm of iliac artery (principal)
CPT/HCPCS: 74174; Q9967

== ENCOUNTER → 2020-02-21 | Outpatient (CLI) | payer OTHER ==
[2020-02-21 13:22] LABS: Basophils # (A) 0.1 k/uL (0-0.2); Basophils % (A) 1 %; Eosinophils # (A) 0.1 k/uL (0-0.7); Eosinophils % (A) 1 %; HGB 18.3 gm/dL (13.0-17.5); Lymphocytes # (A) 1.5 k/uL (1.0-4.8); Lymphocytes % (A) 20 %; MCH 31.9 pg (25.0-35.0); MCHC 32.9 g/dL (31.0-37.0); MCV 96.7 fL (80.0-100.0); Mean Platelet Volume 7.7; Monocytes # (A) 0.5 k/uL (0-1.0); Monocytes % (A) 7 %; Neutrophils # (A) 5.2 k/uL (1.3-7.7); Neutrophils % (A) 69 %; Platelet Count 309 k/uL (150-450); RBC 5.74 m/uL (4.30-5.90); RDW 14.2 % (11.5-15.5); WBC 7.5 k/uL (3.8-10.6)
[2020-02-21 13:32] LABS: HCT 55.6 % (39.0-53.0)
[2020-02-21 20:11] LABS: African American GFR (CKD) 115.8 (60.0-200.0); Albumin 4.3 g/dL (3.80-4.90); Albumin/Globulin Ratio 1.72 (1.60-3.17); Anion Gap 5.9 mmol/L (4.00-12.00); Calcium 10.2 mg/dL (8.7-10.3); Carbon Dioxide 30.1 mmol/L (21.6-31.8); Globulin 2.5 g/dL (1.6-3.3); Non-African American GFR(CKD) 99.9 (60.0-200.0); Potassium 5.1 mmol/L (3.5-5.5); Total Bilirubin 0.7 mg/dL (0.2-1.2); Total Protein 6.8 g/dL (6.2-8.2)
[2020-02-23 04:18] LABS: Hemoglobin A1C 5.3 % (4.0-6.0)
== END | disposition home or self-care (01) ==
LOC: LABWHC1 11:49
PROVIDERS: ATTEND Nurse Practitioner Family
DX: Z01.818 Encounter for other preprocedural examination (principal)
CPT/HCPCS: 36415; 80053; 83036; 85025; 85610

== ENCOUNTER → 2024-04-06 | Outpatient (CLI) | payer OTHER ==
--- NOTE | 2024-04-06 16:47 | US ---
EXAMINATION TYPE: US venous doppler duplex LE LT DATE OF EXAM: 04/06/2024 4:27 PM COMPARISON: NONE CLINICAL INDICATION: Male, 54 years old with history of M79.89 Left leg swelling; I10 Hypertension; l eft leg edema., Pain TECHNIQUE: The lower extremity deep venous system is examined utilizing real time linear array sonog john with graded compression, color doppler sonography, and spectral doppler. SIDE PERFORMED: Left FINDINGS: VESSELS IMAGED: Common Femoral Vein Deep Femoral Vein Greater Saphenous Vein * Femoral Vein Popliteal Vein Small Saphenous Vein * Proximal Calf Veins (* superficial vessels) Left Leg: Negative for DVT, Color Doppler imaging shows patency of the vessels. Spectral waveforms a re within normal limits. IMPRESSION: 1. No evidence of deep vein thrombosis of the left lower extremity. [facility], , 04/06/2024 4:45 PM
--- NOTE | 2024-04-08 07:44 | XR ---
EXAMINATION TYPE: XR knee complete LT DATE OF EXAM: 04/06/2024 CLINICAL HISTORY: Left leg swelling and hypertension TECHNIQUE: Three views of the left knee are obtained including sunrise view. COMPARISON: None. FINDINGS: There is no acute fracture/dislocation evident in left knee. Mild to moderate tricompartme nt joint space loss and mild spurring. Patellar articulation satisfactory and the sunrise view. Incre ased soft tissue density suprapatellar region suggests moderate size left pleural effusion. IMPRESSION: As above. [facility], , 04/08/2024 7:42 AM
== END | disposition home or self-care (01) ==
LOC: RADUSWWP 16:10
PROVIDERS: ATTEND Family Medicine
DX: M79.89 Other specified soft tissue disorders (principal); I10 Essential (primary) hypertension; R60.0 Localized edema

== ENCOUNTER 2024-08-22 15:41 | Emergency (ER) | payer OTHER ==
[2024-08-22 15:50] VITALS: PULSE 69; RESP 16; TEMP 97.7
--- NOTE | 2024-08-22 17:00 | ED ---
General Adult HPI - General Source: patient, RN notes reviewed Mode of arrival: ambulatory Limitations: no limitations <Sonia Jimenez - Last Filed: 08/22/24 16:59> - General Source: patient, RN notes reviewed, old records reviewed <Job Barrett - Last Filed: 08/22/24 20:49> - General Chief complaint: Neuro Symptoms/Deficit Stated complaint: aphasia Time Seen by Provider: 08/22/24 15:55 - History of Present Illness Initial comments: Quick [id number] male presenting to emergency department with complaints of difficulty in finding words that started yesterday evening at 10 PM while he is talking to his son. Patient denies headaches, dizziness, feelings of imbalance, paresthesias, weakness, difficulty breathing. (Sonia Jimenez) Patient is a 54-year-old male who presents emergency department complaining of strokelike symptoms. Patient has what sounds like aphasia that occurred last night at around 10 PM and then once again at approximately 1 or 2 PM this afternoon. States symptoms lasted for moments and resolved. Has no symptoms at this time. Presents for further evaluation after being sent in by his PCP. States he was having a hard time finding words to talk. Denies any slurred speech or weakness or numbness. He has no significant past medical history other than hypertension states he is compliant with medications. Presents for further evaluation. Currently has no symptoms.denies blood thinners. Denies any head injuries. (Job Barrett) - Related Data Previous Rx's Medication Instructions Recorded Atorvastatin [Lipitor] 20 mg PO DAILY #30 tab 11/25/16 Lisinopril-Hctz 20-12.5 mg 2 each PO DAILY #30 tab 11/25/16 [Zestoretic 20-12.5] Naproxen [Naprosyn] 500 mg PO Q12HR #20 tab 11/26/16 predniSONE 10 mg PO DAILY #30 tab 11/26/16 Aspirin 81 mg PO DAILY 30 Days #30 tab 08/22/24 Allergies Allergy/AdvReac Type Severity Reaction Status Date / Time No Known Allergies Allergy Verified 08/22/24 15:50 Review of Systems ROS Other: All systems not noted in ROS Statement are negative. <Sonia Jimenez - Last Filed: 08/22/24 16:59> ROS Other: All systems not noted in ROS Statement are negative. <Job Barrett - Last Filed: 08/22/24 20:49> ROS Statement: Those systems with pertinent positive or pertinent negative responses have been documented in the HPI. Review of Systems: CONST: Denies fever EYES: Denies blurry vision ENT: Denies nasal congestion C/V: Denies Chest pain RESP: Denies shortness of breath GI: Denies abdominal pain : Denies dysuria SKIN: Denies rash. MSK: Denies joint pain. NEURO: Denies headache (Job Barrett) Past Medical History Past Medical History: Hypertension History of Any Multi-Drug Resistant Organisms: None Reported Past Surgical History: No Surgical Hx Reported Past Anesthesia/Blood Transfusion Reactions: No Reported Reaction Past Psychological History: No Psychological Hx Reported Past Alcohol Use History: Occasional Past Drug Use History: Marijuana - Past Family History Father Family Medical History: No Reported History Mother Family Medical History: No Reported History <Sonia Jimenez - Last Filed: 08/22/24 16:59> General Exam Limitations: no limitations <Sonia Jimenez - Last Filed: 08/22/24 16:59> <Job Barrett - Last Filed: 08/22/24 20:49> - General Exam Comments Initial Comments: Visual Physical Exam Vital signs reviewed General: Well-appearing, nontoxic, no acute distress. Head: Normocephalic, atraumatic Eyes: PERRLA, EOMI ENT: Airway patent Chest: Nonlabored breathing Skin: No visual rash, normal skin tone Neuro: Alert and oriented 3 Musculoskeletal: No gross abnormalities (Sonia Jimenez) General: Appears in no acute distress. HEAD: Normal with no signs of head trauma. EYES: PERRLA, EOMI, conjunctiva normal, no discharge. Pupils are 3 mm and equal bilaterally. ENT: Hearing grossly intact, normal oropharynx. RESPIRATORY: Clear breath sounds bilaterally. No wheezes, rales, or rhonchi. C/V: Regular rate and rhythm. S1 and S2 auscultated, no edema, peripheral pulses 2+ and intact throughout ABD: Abd is soft, nontender, nondistended EXT: Normal range of motion, no obvious deformity SKIN: No rashes or lesions observed on exposed skin. NEURO: Alert and oriented x 4. Cranial nerves II-XII intact. No focal sensory or strength deficits. NIH of 0. GCS of 15. (Job Barrett) Course Vital Signs 08/22/24 08/22/24 15:46 17:57 Temperature 97.7 F Pulse Rate 69 Respiratory 16 Rate Blood Pressure 150/70 162/111 O2 Sat by Pulse 97 Oximetry Medical Decision Making <Sonia Jimenez - Last Filed: 08/22/24 16:59> - Lab Data Result diagrams: 08/22/24 17:04 08/22/24 17:04 - EKG Data -: EKG Interpreted by Me <Job Barrett - Last Filed: 08/22/24 20:49> - Medical Decision Making I completed the quick note portion of this chart signed Sonia Jimenez PA-C (Sonia Jimenez) Was pt. sent in by a medical professional or institution (DIPESH Nguyen, [employer] COMMUNITY MANAGER, urgent care, hospital, or detention...) When possible be specific @ -No Did you speak to anyone other than the patient for history (EMS, parent, family, police, friend...)? What history was obtained from this source @ -No Did you review nursing and triage notes (agree or disagree)? Why? @ -I reviewed and agree with nursing and triage notes Were old charts reviewed (outside hosp., previous admission, EMS record, old EKG, old radiological studies, urgent care reports/EKG's, detention records)? Report findings @ -No old charts were reviewed Differential Diagnosis (chest pain, altered mental status, abdominal pain women, abdominal pain men, vaginal bleeding, weakness, fever, dyspnea, syncope, headache, dizziness, GI bleed, back pain, seizure, CVA, palpatations, mental health, musculoskeletal)? @ -Aphasia, CVA, TIA, electrolyte abnormality. This list is not all-inclusive. EKG interpreted by me (3pts min.). @ -As above X-rays interpreted by me (1pt min.). @ -None done CT interpreted by me (1pt min.). @ -CT brain, CT angiogram of the head and neck negative for any obvious acute intracranial process or abnormality. No large vessel occlusions. No evidence of stroke. U/S interpreted by me (1pt. min.). @ -None done What testing was considered but not performed or refused? (CT, X-rays, U/S, labs)? Why? @ -None What meds were considered but not given or refused? Why? @ -None Did you discuss the management of the patient with other professionals (professionals i.e. , DIPESH, [employer] COMMUNITY MANAGER, lab, RT, psych nurse, social services, clinical laboratory aides teacher, teacher, disabilities services officer, corrections caseworker)? Give summary @ -No Was smoking cessation discussed for >3mins.? @ -No Was critical care preformed (if so, how long)? @ -No Were there social determinants of health that impacted care today? How? (Homelessness, low income, unemployed, alcoholism, drug addiction, transportation, low edu. Level, literacy, decrease access to med. care, fpc, rehab)? @ -No Was there de-escalation of care discussed even if they declined (Discuss DNR or withdrawal of care, Hospice)? DNR status @ -No What co-morbidities impacted this encounter? (DM, HTN, Smoking, COPD, CAD, Ca ncer, CVA, ARF, Chemo, Hep., AIDS, mental health diagnosis, sleep apnea, morbid obesity)? @ -None Was patient admitted / discharged? Hospital course, mention meds given and route, prescriptions, significant lab abnormalities, going to OR and other pertinent info. @ -Presents for strokelike symptoms that have since resolved. Had expressive aphasia last night and as well as a shorter episode earlier today. Originally worked up in the waiting room as a quick note. I evaluated the patient when he was placed in room. Vitals are within acceptable limits. CT imaging returned negative for any obvious acute process. Laboratory studies show no obvious acute findings. This includes undetectable troponin. EKG unremarkable. I updated the patient. He is asymptomatic and would like to go home. I did offer admission for further neurology evaluation but as he is asymptomatic, I did discuss with him that he could have suffered a TIA. He will be started on aspirin for home. Given a dose of 325 mg aspirin and given a prescription for baby aspirin. He will be given neurology follow-up and recommended follow-up with PCP in the next 1 to 3 days. Patient was in agreement this plan. Patient remained symptom-free throughout his stay in the emergency department. I instructed the patient to follow up with their PCP in the next 1-3 days. I explained that the patient should return to the emergency department if they experience any worsening symptoms. Strict return precautions were discussed with the patient. The patient expressed understanding of these instructions. I answered all questions that the patient had. The patient was discharged home in good condition with their prescriptions and follow up information. Undiagnosed new problem with uncertain prognosis? @ -No Drug Therapy requiring intensive monitoring for toxicity (Heparin, Nitro, Insulin, Cardizem)? @ -No Were any procedures done? @ -No Diagnosis/symptom? @ -TIA, transient aphasia Acute, or Chronic, or Acute on Chronic? @ -Acute Uncomplicated (without systemic symptoms) or Complicated (systemic symptoms)? @ -Uncomplicated Side effects of treatment? @ -No Exacerbation, Progression, or Severe Exacerbation? @ -No Poses a threat to life or bodily function? How? (Chest pain, USA, ID, pneumonia, PE, COPD, DKA, ARF, appy, cholecystitis, CVA, Diverticulitis, Homicidal, Suicidal, threat to staff... and all critical care pts) @ -Unlikely at this time (Job Barrett) - Lab Data Lab Results 08/22/24 08/22/24 08/22/24 Range/Units 17:04 17:04 17:04 WBC 7.21 (4.50-10.00) 10*3/uL RBC 5.36 (4.40-5.60) 10*6/uL Hgb 16.8 (13.0-17.0) g/dL Hct 48.8 (39.6-50.0) % MCV 91.0 (80.0-97.0) fL MCH 31.3 (27.0-32.0) pg MCHC 34.4 (32.0-37.0) g/dL Plt Count 271 (140-440) 10*3/uL MPV 9.4 L (9.5-12.2) fL Immature Gran % (Auto) 0.3 % Neutrophils % 62.1 % Lymphocytes % 26.6 % Monocytes % 8.9 % Eosinophils % 1.4 % Basophils % 0.7 % Immature Gran # 0.02 (0.00-0.04) 10*3/uL Neutrophils # 4.48 (1.80-7.70) 10*3/uL Lymphocytes # 1.92 (0.90-5.00) 10*3/uL Monocytes # 0.64 (0.20-1.00) 10*3/uL Eosinophils # 0.10 (0.04-0.35) 10*3/uL Basophils # 0.05 (0.00-0.10) 10*3/uL PT 11.0 (10.0-12.5) sec INR 1.0 (<1.2) APTT 25.7 (22.0-30.0) sec Sodium 133 L (137-145) mmol/L Potassium 4.3 (3.5-5.1) mmol/L Chloride 98 (98-107) mmol/L Carbon Dioxide 29 (22-30) mmol/L Anion Gap 6 mmol/L BUN 13 (9-20) mg/dL Creatinine 0.82 (0.66-1.25) mg/dL Est GFR (CKD-EPI)AfAm >90 (>60 ml/min/1.73 sqM) Est GFR (CKD-EPI)NonAf >90 (>60 ml/min/1.73 sqM) Glucose 87 (74-99) mg/dL Calcium 10.0 (8.4-10.2) mg/dL Total Bilirubin 0.7 (0.2-1.3) mg/dL AST 30 (17-59) U/L ALT 38 (4-49) U/L Alkaline Phosphatase 103 (38-126) U/L Troponin I (0.000-0.034) ng/mL Total Protein 7.5 (6.3-8.2) g/dL Albumin 4.2 (3.5-5.0) g/dL / Range/Units 17:04 WBC (4.50-10.00) 10*3/uL RBC (4.40-5.60) 10*6/uL Hgb (13.0-17.0) g/dL Hct (39.6-50.0) % MCV (80.0-97.0) fL MCH (27.0-32.0) pg MCHC (32.0-37.0) g/dL Plt Count (140-440) 10*3/uL MPV (9.5-12.2) fL Immature Gran % (Auto) % Neutrophils % % Lymphocytes % % Monocytes % % Eosinophils % % Basophils % % Immature Gran # (0.00-0.04) 10*3/uL Neutrophils # (1.80-7.70) 10*3/uL Lymphocytes # (0.90-5.00) 10*3/uL Monocytes # (0.20-1.00) 10*3/uL Eosinophils # (0.04-0.35) 10*3/uL Basophils # (0.00-0.10) 10*3/uL PT (10.0-12.5) sec INR (<1.2) APTT (22.0-30.0) sec Sodium (137-145) mmol/L Potassium (3.5-5.1) mmol/L Chloride (98-107) mmol/L Carbon Dioxide (22-30) mmol/L Anion Gap mmol/L BUN (9-20) mg/dL Creatinine (0.66-1.25) mg/dL Est GFR (CKD-EPI)AfAm (>60 ml/min/1.73 sqM) Est GFR (CKD-EPI)NonAf (>60 ml/min/1.73 sqM) Glucose (74-99) mg/dL Calcium (8.4-10.2) mg/dL Total Bilirubin (0.2-1.3) mg/dL AST (17-59) U/L ALT (4-49) U/L Alkaline Phosphatase (38-126) U/L Troponin I <0.012 (0.000-0.034) ng/mL Total Protein (6.3-8.2) g/dL Albumin (3.5-5.0) g/dL - EKG Data EKG Comments: 12-lead Electrocardiogram Interpretation Note EKG was reviewed and interpreted by myself. 12-lead ECG performed at 1706 is interpreted by me as revealing normal sinus rhythm with right bundle branch block at a rate of 64 beats per minute. Right axis deviation. IA interval is 180 ms, QRS duration is 158 ms, QTc is 457 ms.. There were no ST or T wave abnormalities to suggest myocardial ischemia or injury. R wave progression across the precordium was satisfactory. By my interpretation this EKG is non- diagnostic for acute ischemia. (Job Barrett) Disposition <Sonia Jimenez - Last Filed: 08/22/24 16:59> Is patient prescribed a controlled substance at d/c from ED?: No Time of Disposition: 18:30 <Job Barrett - Last Filed: 08/22/24 20:49> Clinical Impression: TIA (transient ischemic attack), Aphasia Disposition: HOME SELF-CARE Condition: Good Instructions (If sedation given, give patient instructions): Transient Ischemic Attack (ED) Additional Instructions: Your workup today was unremarkable. Imaging did not show any obvious signs of stroke or other acute process. You were asymptomatic throughout my evaluation and your stay here at the emergency department. It is possible you had a TIA which is a mini stroke. Please monitor your symptoms, continue taking baby aspirin daily until you follow-up with your PCP or neurologist. Follow-up with PCP or neurologist in the next 1 to 3 days. Return if any worsening symptoms. Prescriptions: Aspirin 81 mg PO DAILY 30 Days #30 tab Referrals: [place],Physician [Primary Care Provider] - 1-2 days Lucas Murphy DO [STAFF PHYSICIAN] - 1-2 days Forms: Area PCPs
[2024-08-22 17:24] LABS: Basophils # (A) 0.05 10*3/uL (0.00-0.10); Basophils % (A) 0.7 %; Eosinophils % (A) 1.4 %; HCT 48.8 % (39.6-50.0); HGB 16.8 g/dL (13.0-17.0); Lymphocytes # (A) 1.92 10*3/uL (0.90-5.00); Lymphocytes % (A) 26.6 %; MCH 31.3 pg (27.0-32.0); MCHC 34.4 g/dL (32.0-37.0); Mean Platelet Volume 9.4 fL (9.5-12.2); Monocytes # (A) 0.64 10*3/uL (0.20-1.00); Monocytes % (A) 8.9 %; Neutrophils # (A) 4.48 10*3/uL (1.80-7.70); Neutrophils % (A) 62.1 %; Platelet Count 271 10*3/uL (140-440); RBC 5.36 10*6/uL (4.40-5.60); WBC 7.21 10*3/uL (4.50-10.00)
[2024-08-22 17:35] LABS: Partial Thromboplastin Time 25.7 sec (22.0-30.0)
[2024-08-22 17:36] LABS: ALT 38 U/L (4-49); AST 30 U/L (17-59); African American GFR (CKD) >90 (>60 ml/min/1.73 sqM); Albumin 4.2 g/dL (3.5-5.0); Alkaline Phosphatase 103 U/L (38-126); Anion Gap 6 mmol/L; Blood Urea Nitrogen 13 mg/dL (9-20); Carbon Dioxide 29 mmol/L (22-30); Chloride 98 mmol/L (98-107); Glucose 87 mg/dL (74-99); Non-African American GFR(CKD) >90 (>60 ml/min/1.73 sqM); Potassium 4.3 mmol/L (3.5-5.1); Sodium 133 mmol/L (137-145); Total Bilirubin 0.7 mg/dL (0.2-1.3); Total Protein 7.5 g/dL (6.3-8.2)
--- NOTE | 2024-08-22 17:54 | CT ---
EXAMINATION TYPE: CT brain wo con DATE OF EXAM: 08/22/2024 COMPARISON: 11/24/2016 CLINICAL INDICATION: Male, 54 years old with history of Neuro deficit, acute, stroke suspected; PHH, Slurred speech, left side facial droop x 2 days TECHNIQUE: CT scan of the head is performed without contrast. CT DLP: 1851.[address] CTDI: mGy Automated exposure control for dose reduction was used. FINDINGS: There is no acute intracranial hemorrhage or midline shift identified. There is diffuse v entricular and sulcal prominence consistent with diffuse age-related cerebral atrophy. There is low- attenuation in the periventricular white matter consistent with chronic small vessel ischemic change. The globes are intact and the visualized sinuses are clear. IMPRESSION: No acute intracranial hemorrhage or midline shift. There is diffuse age-related cerebra l atrophy and chronic small vessel ischemic change noted. [facility], , 08/22/2024 5:52 PM
--- NOTE | 2024-08-22 17:57 | CT ---
The EXAMINATION TYPE: CT angio head neck DATE OF EXAM: 08/22/2024 5:50 PM COMPARISON: None. CLINICAL INDICATION: Male, 54 years old with history of Neuro deficit, acute, stroke suspected, Slurr ed speech, left side facial droop x 2 days, TECHNIQUE: Axially acquired helical CT Angiogram of the Neck was obtained with and without contrast. Axial images are supplemented with coronal and sagittal MIP reconstructions. 3D reconstructions were also performed and were post-processed at an independent workstation. Estimated carotid stenosis was calculated using the NASCET criteria. Contrast CTA of the [place] was performed 3-D recons truction imaging obtained at a separate workstation. IV CONTRAST: without and with IV Contrast, patient injected with 65 mL of Isovue 370. (None if empty) CT DLP: 1851.2 mGycm, Automated exposure control for dose reduction was used. FINDINGS: NECK: Right carotid system: Mild plaque is seen of the right common carotid artery. There is mild plaque a lso noted at the carotid bulb and proximal ICA. No significant diameter reduction. ECA is patent. Right vertebral artery appears unremarkable. Left carotid system: Mild plaque is seen of the left common carotid artery. There is mild plaque als o noted at the carotid bulb and proximal ICA. No significant diameter reduction. ECA is patent. Lef t vertebral artery appears unremarkable. BRAIN: Vertebrobasilar system as well as intracranial portions of the internal carotid arteries and their ma erwin tributaries are patent. I do not see evidence for sizable aneurysm or vascular malformation. Pl ease note MRI provides greater sensitivity and specificity. Visualized brain appears grossly unremar kable. IMPRESSION: 1. No evidence for hemodynamically significant stenosis at the carotid bifurcations. No significant diameter reduction to account for the patient's symptoms. 2. No evidence for intracranial aneurysm or high-grade stenosis. [facility], , 08/22/2024 5:55 PM
[2024-08-22 17:59] VITALS: BP 162/111
[2024-08-22] MEDS: ASPIRIN 325 MG TAB PO STA (18:35)
== END 2024-08-22 18:44 | disposition home or self-care (01) ==
LOC: EC 15:41
DX: R47.01 Aphasia (principal); G45.9 Transient cerebral ischemic attack, unspecified; I45.10 Unspecified right bundle-branch block
CPT/HCPCS: 36415; 93005; 80053; 84484; 85025; 85610; 85730; 70496; 70450; 70498; 99285; Q9967